=== PATIENT | female | born 1960 | race African-American/Black ===

== ENCOUNTER 2023-09-08 02:52 | Emergency (ER) | payer MEDICAID ==
[~2023-09-08] VITALS: Ht 157.5 cm; Wt 73.0 kg
[~2023-09-08 02:52] MED LIST: LISI10TA26 PO; METFORMIN
[2023-09-08 02:53] VITALS: BP 152/62; PULSE 74; RESP 14; TEMP 98.6; O2SAT 99
[2023-09-08] MEDS ORDERED: DIAZEPAM 5 MG TABLET PO ONE (03:00)
[2023-09-08 03:14] LABS: BASOPHILS % 0.5 % (0.0-2.0); EOSINOPHILS % 0.9 % (0.0-5.0); LYMPHOCYTES % 33.8 % (20.0-50.0); MEAN CORPUSCULAR HEMOGLOBIN 28.7 pg (28.0-32.0); MEAN CORPUSCULAR HGB CONC 33.3 g/dL (31.0-37.0); MEAN PLATELET VOLUME 7.3 fl (7.4-10.4); MONOCYTES % 7.3 % (2.0-8.0); NEUTROPHILS % 57.5 % (40.0-76.0); PLATELET 240 x1000/uL (130-400); RED BLOOD CELL COUNT 4.54 mill/uL (4.2-5.4); RED CELL DISTRIBUTION WIDTH 14.4 % (11.6-14.6)
[2023-09-08 03:33] LABS: ALANINE AMINOTRANSFERASE 17 IU/L (10-49); ALBUMIN 4.4 g/dL (3.2-4.8); ASPARTATE AMINOTRANSFERASE 27 IU/L (<34); BILIRUBIN TOTAL 0.6 mg/dL (0.1-1.0); CALCIUM 9.3 mg/dL (8.7-10.4); CARBON DIOXIDE 27 mEq/L (21-32); CHLORIDE 103 mEq/L (98-107); CREATININE 0.5 mg/dL (0.6-1.0); GLUCOSE 210 mg/dL (70-105); POTASSIUM 3.3 mEq/L (3.5-5.1); PROTEIN TOTAL 7.6 g/dL (6.0-8.3); SODIUM 138 mEq/L (136-145); TROPONIN I HIGH SENSITIVITY 9 ng/L (3.0-34); UREA NITROGEN BLOOD 6 mg/dL (9-23)
[2023-09-08] MEDS ORDERED: POTASSIUM CHLORIDE 20MEQ TABLET SR PO ONE (03:45)
[2023-09-08] MEDS ORDERED: CYCL10TA21 MT (05:01)
== END 2023-09-08 08:26 | disposition left against medical advice (07) ==
LOC: ER 03:13
DX: M79.602 Pain in left arm (principal); E11.9 Type 2 diabetes mellitus without complications; Z88.6 Allergy status to analgesic agent; Z88.5 Allergy status to narcotic agent; Z88.1 Allergy status to other antibiotic agents
CPT/HCPCS: 36415; 73030; 80053; 84484; 85025; 93005; 99285